=== PATIENT | female | born 1950 | race African-American/Black ===

== ENCOUNTER 2018-11-24 15:33 | Inpatient (IN) | payer OTHER, MEDICAID ==
[~2018-11-24] VITALS: Ht 137.2 cm; Wt 53.1 kg
[2018-11-24] MEDS ORDERED: ONDANSETRON HCL 4MG/2ML INJ IV STA (15:41)
[2018-11-24] MEDS ORDERED: SODIUM CHLORIDE 0.9% 1000ML BAG (SEPSIS BOLUS) IV ONE (15:45)
[2018-11-24] MEDS ORDERED: FAMOTIDINE 20MG/2ML VIAL IV ONE (15:45)
[2018-11-24 16:17] LABS: BASOPHILS % 0.1 % (0.0-2.0); HEMATOCRIT. 29.1 % (36.0-48.0); HEMOGLOBIN. 9.2 g/dL (12.0-16.0); LYMPHOCYTES % 15.5 % (20.0-50.0); MEAN CORPUSCULAR HEMOGLOBIN 26.4 pg (28.0-32.0); MEAN CORPUSCULAR VOLUME 83.5 fL (81.0-99.0); MEAN PLATELET VOLUME 6.8 fl (7.4-10.4); MONOCYTES % 4.1 % (2.0-8.0); NEUTROPHILS % 80.3 % (40.0-76.0); PLATELET 298 x1000/uL (130-400); RED BLOOD CELL COUNT 3.48 mill/uL (4.2-5.4); RED CELL DISTRIBUTION WIDTH 17.4 % (11.6-14.6)
[2018-11-24 16:22] LABS: PROTHROMBIN TIME 10.7 sec (9.6-11.0)
[2018-11-24 16:23] LABS: CHLORIDE 107 mEq/L (98-107)
[2018-11-24] MEDS ORDERED: CEFTRIAXONE 1 G PREMIX 50 ML IV NR (17:00)
[2018-11-24] MEDS ORDERED: AZITHROMYCIN 500 MG in DEXT 5% WATER 250 ML IV ONE (17:15)
[2018-11-24] MEDS: AZITHROMYCIN 500 MG in DEXT 5% WATER 250 ML IV SCH ×2 (17:15→17:52)
[2018-11-24 17:27] LABS: CLARITY URINE CLEAR (CLEAR); COLOR URINE YELLOW (YELLOW); KETONES URINE NEGATIVE (NEGATIVE); LEUKOCYTE ESTERASE URINE NEGATIVE (NEGATIVE); NITRITE URINE NEGATIVE (NEGATIVE); OCCULT BLOOD URINE NEGATIVE (NEGATIVE); PROTEIN URINE NEGATIVE (NEGATIVE); SPECIFIC GRAVITY URINE 1.018 (1.005-1.030); UROBILINOGEN URINE 0.2 E.U./dL (0.2-1.0)
[2018-11-24 19:09] LABS: BG BASE EXCESS -8.6 mmol/L (-2.0-2.0); BG CARBOXYHEMOGLOBIN 0.3 % (0.5-1.5); BG DEOXYHEMOGLOBIN 1.9 % (0.0-5.0); BG FRACTION INSPIRED OXYGEN 100; BG HCO3 ACT 18.1 mmol/L (22.0-26.0); BG METHEMOGLOBIN 0.3 % (0.0-1.5); BG OXYGEN SATURATION 98.1 % (92.0-98.5); BG OXYHEMOGLOBIN 97.5 % (94.0-97.0); BG PCO2 42.5 mmHg (35.0-45.0); BG PH 7.247 (7.350-7.450); BG PO2 138.9 mmHg (75.0-100.0); BG SAMPLE SITE LEFT BRACHIAL; BG TOTAL HEMOGLOBIN 9.1 g/dL (12.0-18.0); BG VENT MODE MASK - NRB
[2018-11-24 22:00] VITALS: BP 141/67
[2018-11-25] VITALS (11 sets, daily range): BP systolic 111–156; BP diastolic 54–78
[2018-11-25] MEDS ORDERED: NON FORMULARY PATIENT HOME MED XX SCH (00:15)
[2018-11-25] MEDS ORDERED: PIPERACILLIN/TAZ 3.375G PREMIX 50 ML IV SCH (00:15)
[2018-11-25] MEDS ORDERED: OMEP40CA34 MT (00:32)
[2018-11-25] MEDS ORDERED: [UNRECOGNIZED DRUG - OTHER] (00:32)
[2018-11-25] MEDS ORDERED: LORA10TA7 MT (00:32)
[2018-11-25] MEDS ORDERED: FERR-71 MT (00:32)
[2018-11-25] MEDS ORDERED: LISI40TA4 MT (00:32)
[2018-11-25] MEDS ORDERED: DEXA4TAB PO (00:32)
[2018-11-25] MEDS ORDERED: ASPI-1158 MT (00:32)
[2018-11-25] MEDS ORDERED: BENZ-16 MT (00:32)
[2018-11-25] MEDS: DEXT 5%/0.45% NACL 1000ML 1,000 ML IV SCH ×5 (00:53→23:21)
[2018-11-25] MEDS: PANTOPRAZOLE 80 MG in SODIUM CHLORIDE 0.9% 100 ML IV SCH ×4 (00:53→21:01)
[2018-11-25] MEDS: PIPERACILLIN/TAZ 2.25G PREMIX 50 ML IV SCH ×6 (00:54→23:21)
[2018-11-25 01:02] LABS: HEMATOCRIT 31.9 % (36.0-48.0); HEMOGLOBIN 10.4 g/dL (12.0-16.0)
[2018-11-25] MEDS: DEXAMETHASONE 4MG/ML 1ML VIAL IV SCH ×4 (01:19→21:02)
[2018-11-25] MEDS: ONDANSETRON HCL 4MG/2ML INJ IV PRN ×2 (01:21→21:02)
[2018-11-25 07:14] LABS: HEMATOCRIT. 29.7 % (36.0-48.0); HEMOGLOBIN. 9.7 g/dL (12.0-16.0); MEAN CORPUSCULAR HEMOGLOBIN 27.4 pg (28.0-32.0); MEAN CORPUSCULAR VOLUME 83.6 fL (81.0-99.0); MEAN PLATELET VOLUME 7.1 fl (7.4-10.4); PLATELET 218 x1000/uL (130-400); RED BLOOD CELL COUNT 3.55 mill/uL (4.2-5.4); RED CELL DISTRIBUTION WIDTH 17.4 % (11.6-14.6)
[2018-11-25 07:43] LABS: CHLORIDE 112 mEq/L (98-107)
[2018-11-25 11:02] LABS: PLATELET ESTIMATE NORMAL
[2018-11-25 12:40] LABS: HEMATOCRIT 31.5 % (36.0-48.0); HEMOGLOBIN 10.3 g/dL (12.0-16.0)
[2018-11-25 20:47] LABS: HEMATOCRIT 28.7 % (36.0-48.0); HEMOGLOBIN 9.5 g/dL (12.0-16.0)
[2018-11-25] MEDS ORDERED: ACETAMINOPHEN 325MG TABLET PO PRN (23:45)
[2018-11-26] VITALS (15 sets, daily range): BP systolic 114–158; BP diastolic 50–96
[2018-11-26] MEDS: IPRATROPIUM/ALBUTEROL 0.5-3(2.5)MG/3ML NEB HHN SCH ×3 (04:46→21:41)
[2018-11-26] MEDS: DEXAMETHASONE 4MG/ML 1ML VIAL IV SCH ×3 (06:18→21:48)
[2018-11-26] MEDS: PIPERACILLIN/TAZ 2.25G PREMIX 50 ML IV SCH ×4 (06:18→23:48)
[2018-11-26] MEDS: PANTOPRAZOLE 80 MG in SODIUM CHLORIDE 0.9% 100 ML IV SCH ×2 (06:31→17:02)
[2018-11-26] MEDS: DEXT 5%/0.45% NACL 1000ML 1,000 ML IV SCH (17:06)
[2018-11-26 17:32] LABS: BG BASE EXCESS -3.6 mmol/L (-2.0-2.0); BG CARBOXYHEMOGLOBIN 0.3 % (0.5-1.5); BG DEOXYHEMOGLOBIN 4.8 % (0.0-5.0); BG FRACTION INSPIRED OXYGEN 21; BG HCO3 ACT 20.3 mmol/L (22.0-26.0); BG METHEMOGLOBIN 0.3 % (0.0-1.5); BG OXYGEN SATURATION 95.2 % (92.0-98.5); BG OXYHEMOGLOBIN 94.6 % (94.0-97.0); BG PCO2 32.9 mmHg (35.0-45.0); BG PH 7.409 (7.350-7.450); BG PO2 73.3 mmHg (75.0-100.0); BG SAMPLE SITE LEFT BRACHIAL; BG TOTAL HEMOGLOBIN 11.2 g/dL (12.0-18.0); BG VENT MODE ROOM AIR
[2018-11-27] VITALS (8 sets, daily range): BP systolic 117–137; BP diastolic 50–68
[2018-11-27] MEDS: DEXT 5%/0.45% NACL 1000ML 1,000 ML IV SCH ×2 (01:40→12:15)
[2018-11-27] MEDS: IPRATROPIUM/ALBUTEROL 0.5-3(2.5)MG/3ML NEB HHN SCH ×4 (02:22→12:19)
[2018-11-27] MEDS: PANTOPRAZOLE 80 MG in SODIUM CHLORIDE 0.9% 100 ML IV SCH ×2 (03:49→13:00)
[2018-11-27] MEDS: DEXAMETHASONE 4MG/ML 1ML VIAL IV SCH (06:12)
[2018-11-27] MEDS: PIPERACILLIN/TAZ 2.25G PREMIX 50 ML IV SCH ×2 (06:12→11:22)
== END 2018-11-27 13:45 | disposition home or self-care (01) | DRG 922 ==
LOC: EDBD 15:33 → ER 15:33 → 5EST 17:34 → EDBEDREQ 17:36 → EDBEDREQTM 17:36 → ENRESERV 20:23
PROVIDERS: ADMIT Internal Medicine; ATTEND Internal Medicine
PROC: 30233N1 Transfusion of Nonautologous Red Blood Cells into Peripheral Vein, Percutaneous Approach (ICD-10-PCS; principal; 2018-11-24)
DX: T66.XXXA Radiation sickness, unspecified, initial encounter (principal); N17.0 Acute kidney failure with tubular necrosis; J96.01 Acute respiratory failure with hypoxia; E46 Unspecified protein-calorie malnutrition; K92.2 Gastrointestinal hemorrhage, unspecified; C34.90 Malignant neoplasm of unspecified part of unspecified bronchus or lung; C79.9 Secondary malignant neoplasm of unspecified site; E87.2 Acidosis; E11.65 Type 2 diabetes mellitus with hyperglycemia; E78.00 Pure hypercholesterolemia, unspecified; E86.0 Dehydration; F17.200 Nicotine dependence, unspecified, uncomplicated; I10 Essential (primary) hypertension; Z66 Do not resuscitate; Z79.899 Other long term (current) drug therapy; Z92.3 Personal history of irradiation; Z79.82 Long term (current) use of aspirin
CPT/HCPCS: 36415; 36600; 71045; 82375; 82805; 83605; 83880; 84484; 85014; 85018; 86850; 86900; 86920; 93005; 96361; 96365; 96375; 99291; C9113; J0456; J0696; J1100; J2405; J2543; J3490; J7030; J7050; J7060; J7620; P9016; A4315